=== PATIENT | female | born 1985 | race Caucasian/White ===

== ENCOUNTER 2017-03-02 00:56 | Inpatient (IN) | payer SELFPAY ==
[2017-03-02 02:00] VITALS: BMI 35.9
--- NOTE | 2017-03-02 02:13 | OBADHP ---
Datetime: 03/02/2017 02:04 Admit Comment, IP Provider: Pt with no records reporting of care at [facility] Rashad hatfield y reports here today c/o intermittent pelvic cramps. She denies any current VB but reported having le akage of fluid? time. [place]: Q 2-3 FHR- Category 1, Speculum- pooling +ve, Nitrazine - Positve, Cx- 3-4/90/-2, Vtx presen tation. GBS- unknown Assessment: IUP at term No care. GBS Unknown Rupture of Membranes. Plan: Admit to LND PCN for GBS prophylaxis Monitor the progress of labor. Pelvic Type - PN: Adequate Extremities - PN: Normal Abdomen - PN: Normal Back - PN: Normal Breast - PN: Normal Lungs - PN: Normal Heart - PN: Normal HEENT - PN: Normal General - PN: Normal Presentation-Admit: Vertex FHR - Baseline A Provider: 130 Amniotic Fluid Color, Provider: Clear Membranes, Provider: Ruptured Comments, ACOG Physical Exam: Abd: Soft, NT , BS- present Gestation - Est Wks by US: 41.0 Pool Provider: Positive Nitrazine Provider: Positive Vital Signs Provider: Reviewed IP Chief Complaint: Uterine contractions; Suspected ruptured membranes; Maternal discomfort NICHD Variability Prov Fetus A: Moderate 6-25bpm NICHD Accel Fetus A IP Provider: 15X15 FHR Category Provider Fetus A: Category I NICHD Decel Fetus A IP Provider: None Dilatation, Provider: 3-4 Effacement, Provider: 90 Station, Provider: -2 Genitourinary Exam: Normal EGA AdmitDate IP: 41.2 IP Adm Impression: Term, intrauterine ; Active labor; Ruptured Membranes IP Admit Plan: Admit to unit; Initiate labor protocol
[2017-03-02] MEDS ORDERED: Penicillin G 5 Million Unit Vial IVPB ONE (02:14)
[2017-03-02] MEDS ORDERED: Lactated Ringer's 1,000 ML IV SCH (02:15)
[2017-03-02] MEDS ORDERED: Oxytocin 30 UNIT 30 UNITS/500 ML BAG IV SCH (02:30)
[2017-03-02 02:33] LABS: BASO % 0.2 % (0.0-2.0); EOS % 0.3 % (0.0-4.0); HEMOGLOBIN 11.7 g/dL (11.0-16.0); LYMPH # 1.9 K/uL (1.0-4.3); LYMPH % 28.3 % (20.0-40.0); MEAN CELL VOLUME 88.7 fL (81.0-99.0); MEAN CORPUSCULAR HEMOGLOBIN 30.2 pg (27.0-31.0); MEAN CORPUSCULAR HGB CONC 34.1 g/dL (33.0-37.0); MEAN PLATELET VOLUME 7.8 fL (7.2-11.7); MONO # 0.6 K/uL (0.0-0.8); MONO % 9.3 % (0.0-10.0); NEUT # 4.2 K/uL (1.8-7.0); NEUT % 61.9 % (50.0-75.0); RBC 3.88 Mil/uL (3.80-5.20); RED CELL DISTRIBUTION WIDTH 14.5 % (11.5-14.5); WHITE BLOOD COUNT 6.8 K/uL (4.8-10.8)
[2017-03-02 02:44] LABS: SQUAMOUS EPITHIAL 1 /hpf (0-5); URINE BACTERIA OCC (<OCC); URINE BILIRUBIN NEGATIVE (NEGATIVE); URINE BLOOD NEGATIVE (NEGATIVE); URINE CLARITY Clear (Clear); URINE COLOR Straw (YELLOW); URINE GLUCOSE (UA) NORMAL (Normal); URINE LEUKOCYTE ESTERASE 2+ Leu/uL (Negative); URINE NITRATE NEGATIVE (NEGATIVE); URINE PROTEIN NEGATIVE (NEGATIVE); URINE UROBILINOGEN NORMAL mg/dL (0.2-1.0)
[2017-03-02 03:13] LABS: ALBUMIN 3.9 g/dL (3.5-5.0); ALT/SGPT 16 U/L (9-52); AST/SGOT 18 U/L (14-36); BLOOD UREA NITROGEN 8 mg/dL (7-17); CALCIUM 8.5 mg/dl (8.6-10.4); GFR AFRICAN-AMERICAN > 60; GFR NON-AFRICAN AMERICAN > 60
[2017-03-02 03:22] LABS: HEPATITIS B SURFACE AG NEGATIVE (NEGATIVE)
[2017-03-02 04:02] LABS: BARBITURATES, UR NEGATIVE (NEGATIVE); BENZODIAZEPINES, UR NEGATIVE (NEGATIVE); OPIATES, UR NEGATIVE (NEGATIVE); PHENCYCLIDINE, UR NEGATIVE (NEGATIVE)
--- NOTE | 2017-03-02 05:13 | OBDS ---
MATERNAL INFORMATION Provider Comments: Uncomplicated spontaneous vaginal delivery of a viable male infant with sco res of 9 and 9 over an Intact perineum. EBL- 150mls_ Pt tolerated the procedure well. LABOR SUMMARY EDC: 02/21/2017 00:00 No. Babies in Womb: 1 LABOR INFORMATION Onset of Labor: 03/01/2017 19:30 MEMBRANES Membranes Rupture Method: Spontaneous Rupture of Membranes: 03/01/2017 19:30 Length of Rupture (hrs): 9.52 Amniotic Fluid Color: Clear Amniotic Fluid Amount: Scant Amniotic Fluid Odor: Normal STAGES OF LABOR Stage 3 hrs: 0 Stage 3 min: 5 Total Time in Labor hrs: 9 Total Time in Labor min: 36 VAGINAL DELIVERY Episiotomy: None Laceration Extension: N/A Laceration Type: None Laceration Repair: Not Applicable Sponge Count Correct: Yes Sharps Count Correct: N/A BABY A INFORMATION Delivery Date/Time: 03/02/2017 05:01 Method of Delivery: Vaginal SHOULDER DYSTOCIA BABY A Delivery Date/Time: 03/02/2017 05:01 PLACENTA INFORMATION BABY A Placenta Delivery Time : 03/02/2017 05:06 IDENTIFICATION/MEDS BABY A ID Band Number: [id number] Sensor Number: [id number]
[2017-03-02] MEDS: Potassium Chloride 20 mEq ER Tab PO SCH (13:37)
[2017-03-02 14:05] LABS: RAPID PLASMA REAGIN NONREACTIVE (NONREACTIVE)
[2017-03-03 07:32] LABS: BASO % 0.1 % (0.0-2.0); EOS % 0.5 % (0.0-4.0); HEMOGLOBIN 10.8 g/dL (11.0-16.0); LYMPH # 2.7 K/uL (1.0-4.3); LYMPH % 31.6 % (20.0-40.0); MEAN CELL VOLUME 89.5 fL (81.0-99.0); MEAN CORPUSCULAR HEMOGLOBIN 30.2 pg (27.0-31.0); MEAN CORPUSCULAR HGB CONC 33.7 g/dL (33.0-37.0); MEAN PLATELET VOLUME 7.7 fL (7.2-11.7); MONO # 0.7 K/uL (0.0-0.8); MONO % 7.8 % (0.0-10.0); NEUT # 5.1 K/uL (1.8-7.0); RBC 3.59 Mil/uL (3.80-5.20); RED CELL DISTRIBUTION WIDTH 14.8 % (11.5-14.5); WHITE BLOOD COUNT 8.5 K/uL (4.8-10.8)
[2017-03-03] MEDS: Potassium Chloride 20 mEq ER Tab PO SCH (10:21)
--- NOTE | 2017-03-03 10:51 | OBPPN ---
Datetime: 03/03/2017 10:44 PP Pain Prov: Within normal limits PP Nausea Prov: Present PP Flatus Prov: Yes PP BM Prov: No PP Breasts Prov: Normal PP Heart Prov: Normal PP Lungs Prov: Normal PP Abdomen/Uterus Prov: Normal PP Lochia Prov: Normal PP CVA Tenderness Prov: Normal PP Extremities Prov: Normal PP Progress Prov: Normal PP Impression Prov: Normal progression PP Plan Prov: Continue present management PP Progress Note Prov: s: no c/o. +. desires circ for son. i: s/p doing well p: rout pp care informed consent obtained for circ. states her first son did not get a circ because the "dr talked me out of it". She unerstands that iit is an elective, not medically indicated procedure. Risks and possible benefits d/w pt. IP PP Procedures: None Vital Signs Provider PP: Within Normal Limits
[2017-03-04 08:59] VITALS: BP 130/77; PULSE 83; RESP 18; TEMP 97.9; O2SAT 99
[2017-03-04] MEDS: Potassium Chloride 20 mEq ER Tab PO SCH (10:30)
--- NOTE | 2017-03-04 14:23 | OBPPN ---
Datetime: 03/04/2017 14:22 PP Pain Prov: Within normal limits PP Nausea Prov: Denies PP Flatus Prov: Yes PP BM Prov: Yes PP Breasts Prov: Normal PP Heart Prov: Normal PP Lungs Prov: Normal PP Abdomen/Uterus Prov: Normal PP Vulva/Perineum Prov: Normal PP Extremities Prov: Normal PP C/S Incision Prov: Not Applicable PP Progress Prov: Normal PP Impression Prov: Normal progression PP Plan Prov: Discharge PP Progress Note Prov: S-patient reports that her pain si well controlled.she is tolerating reg diet .she is ambulating and voiding without difficulty O-VSS Afebrile FUndus firm and below umbilicus Abdomen soft and nontender extremities no calf tenderness A/P Patient s/p vaginal delivery PPD 2 doing well -discharge today -follow up in clinic in 6 weks precautions given Vital Signs Provider PP: Reviewed; Within Normal Limits
--- NOTE | 2017-03-04 14:26 | OBDCSUM ---
Datetime: 03/04/2017 12:35 Discharged to, Provider: Home Follow up at, Provider: [facility] Disch Instr Activity: Normal activity Disch Instr Diet: Regular Discharge Diet restrict Prov: none Discharge Instructions, Provider: Routine instructions given Discharge Diagnosis, Provider: Term Delivered Discharge Time: 03/04/2017 13:00 Follow up in weeks, Provider: April 13, 2017 Disch Referrals: [facility] Disch Activity Restrictions: No exercising; No lifting; No driving; Minimize walking; Minimize stair -climbing; No sexual activity; Nothing in vagina - Economy, tampons, douche Discharge Comment, Provider: go to er if you have fever, severe pain, heavy bleeidng or any other pr oblems Discharge Diagnosis Prov Other: s/p vaginal delivery Contraception after Delivery: Undecided
== END 2017-03-04 15:00 | disposition home or self-care (01) | DRG 775 ==
LOC: C.EROB 00:56 → C.4D 02:00 → C.4M 07:45
PROVIDERS: ADMIT Obstetrics & Gynecology; ATTEND Obstetrics & Gynecology
PROC: 10E0XZZ Delivery of Products of Conception, External Approach (ICD-10-PCS; principal; 2017-03-02)
DX: O48.0 Post-term pregnancy (principal); Z37.0 Single live birth; Z3A.41 41 weeks gestation of pregnancy

== ENCOUNTER 2017-10-28 12:23 | Emergency (ER) | payer MEDICAID, OTHER ==
[2017-10-28 12:24] VITALS: BMI 35.9
[2017-10-28 12:36] VITALS: BP 137/84; PULSE 106; RESP 18; TEMP 98; O2SAT 100
--- NOTE | 2017-10-28 13:47 | C.PDOC ---
History Of Present Illness 31 year old female presents to the ER with a complaint of right knee pain and swelling after she fell yesterday. Patient states she fell and hurt the same knee 2 months ago, the pain resolved on its own, however, since then she feels like it gives out on her. Denies weakness or numbness. Time Seen by Provider: 10/28/17 12:38 Chief Complaint (Nursing): Lower Extremity Problem/Injury History Per: Patient History/Exam Limitations: no limitations Onset/Duration Of Symptoms: Days Current Symptoms Are (Timing): Still Present Recent travel outside of the [place]: No - Knee Description Of Injury: Fell Past Medical History Reviewed: Historical Data, Nursing Documentation, Vital Signs Vital Signs: Last Vital Signs Temp 98.0 F 10/28/17 12:33 Pulse 106 H 10/28/17 12:33 Resp 18 10/28/17 12:33 BP 137/84 10/28/17 12:33 Pulse Ox 100 10/28/17 14:13 - Medical History PMH: Denies: Depression, Diabetes, HTN - [facility] Procedures DELIVERY OF PRODUCTS OF CONCEPTION, EXTERNAL APPROACH (03/02/17) MANUAL ASSIST DELIV NEC (07/03/12) Family History: States: Unknown Family Hx - Social History Hx Alcohol Use: Yes Hx Substance Use: No - Immunization History Hx Tetanus Toxoid Vaccination: (unk) Hx Influenza Vaccination: No Review Of Systems Musculoskeletal: Positive for: Leg Pain Neurological: Negative for: Weakness, Numbness Physical Exam - Physical Exam Appears: Non-toxic Skin: Normal Color, Warm, Dry Head: Atraumatic, Normacephalic Eye(s): bilateral: Normal Inspection Extremity: Normal ROM (x4), Capillary Refill (<2 seconds), Other (Mild swelling and tenderness to the anterior right knee) Pulses: Left Dorsalis Pedis: Normal, Right Dorsalis Pedis: Normal Neurological/Psych: Oriented x3, Normal Speech, Normal Motor, Normal Sensation Gait: Steady ED Course And Treatment O2 Sat by Pulse Oximetry: 100 (Room air) Pulse Ox Interpretation: Normal Medical Decision Making Medical Decision Making: Right knee x-ray ordered, results were negative. Patient refuses pain medication at this time, she is ambulatory with a steady gait, vitals are stable , will discharge home with Rx and instructions to follow up with Ortho as there may be issues with the ligaments or meniscus. Disposition - Disposition Referrals: [facility] at [facility] [Outside] Darrell Vargas III, MD [Staff Provider] - Disposition: HOME/ ROUTINE Disposition Time: 14:08 Condition: GOOD Additional Instructions: Follow up with the Orthopedist doctor within 3-5 days. Return if worsened. Prescriptions: Acetaminophen [Tylenol] 325 mg PO Q6 PRN #30 tab PRN Reason: Pain, Mild (1-3) Instructions: Knee Sprain (DC) Forms: [employer] (Citizen [place]), Work Excuse - Clinical Impression Clinical Impression: Knee sprain - PA / WINE MASTER / Resident Statement MD/DO has reviewed & agrees with the documentation as recorded. - Scribe Statement The provider has reviewed the documentation as recorded by the Scribhina Rowell All medical record entries made by the Scribhina were at my direction and personally dictated by me. I have reviewed the chart and agree that the record accurately reflects my personal performance of the history, physical exam, medical decision making, and the department course for this patient. I have also personally directed, reviewed, and agree with the discharge instructions and disposition.
--- NOTE | 2017-10-28 13:51 | RAD ---
Date of service: 10/28/2017 PROCEDURE: Right Knee Radiographs. HISTORY: knee injury, pain and swelling anteriorly COMPARISON: None. FINDINGS: BONES: Normal. No fracture. JOINTS: Normal. No osteoarthritis. JOINT EFFUSION: None. OTHER FINDINGS: None. IMPRESSION: Normal radiographs of the right knee.
== END 2017-10-28 14:23 | disposition home or self-care (01) ==
LOC: C.ER 12:23
DX: S83.91XA Sprain of unspecified site of right knee, initial encounter (principal); W19.XXXA Unspecified fall, initial encounter